=== PATIENT | female | born 1960 | race Caucasian/White ===

== ENCOUNTER 2020-04-04 11:58 | Outpatient (CLI) | payer OTHER, SELFPAY ==
--- NOTE | 2020-04-04 12:04 | MM_ITS ---
WS: [id number] BILATERAL DIGITAL SCREENING MAMMOGRAPHY WITH CAD CLINICAL INFORMATION: SCREENING HISTORY: Screening mammogram. No current complaints. COMPARISON: December 05, 2018 TECHNIQUE: Bilateral CC and MLO views. FINDINGS: Scattered fibroglandular densities bilaterally. No suspicious focal mass, asymmetry, calcifications, or architectural distortion. No evidence of malignancy. MM/[place] [id number] IMPRESSION: BI-RADS: 1-Negative FOLLOW UP: 1 Year Follow-up Recommend return to annual screening mammography.
== END 2020-04-04 11:59 | disposition home or self-care (01) ==
LOC: RADSHAW 12:03
PROVIDERS: PCP Internal Medicine; Visit Provider Internal Medicine
DX: Z12.31 Encounter for screening mammogram for malignant neoplasm of breast (principal)
CPT/HCPCS: 77067

== ENCOUNTER 2020-09-14 20:38 | Observation (INO) | payer OTHER, SELFPAY ==
[2020-09-14 20:41] VITALS: BP 174/86; RESP 16; TEMP 36.5; O2SAT 98; BMI 23.1
--- NOTE | 2020-09-14 21:41 | XRR_ITS ---
PROCEDURE INFORMATION: Exam: XR Left Wrist Exam date and time: 09/14/2020 9:45 PM Age: 60 years old Clinical indication: Injury or trauma; Blunt trauma (contusions or hematomas); Patient HX: Left wrist pain, fall TECHNIQUE: Imaging protocol: XR Left wrist. Views: 3 or more views. COMPARISON: No relevant prior studies available. FINDINGS: Bones/joints: Mildly displaced fracture of the tip of the ulnar styloid. Comminuted and mildly displaced intra-articular fracture of the distal left radius. A longitudinal component extends proximally to the distal diaphysis. Mild dorsal angulation of the distal fracture fragment and ventral displacement of multiple small bone fragments. Comminuted and mildly displaced fracture of the distal metaphysis of the left ulna. There is a radiopaque focus projecting over the 2nd middle phalanx seen only on the oblique image, this area was not included on the other 2 images. It is uncertain whether this could represent a foreign body or if it is a structure external to the patient. No dislocation. Bones are diffusely osteopenic. Soft tissues: Moderate soft tissue swelling at the distal left forearm and wrist. XR/XR wrist LT min 3V* [id number] IMPRESSION: 1. Comminuted and mildly displaced intra-articular fracture of the distal left radius. A longitudinal component extends proximally to the distal diaphysis. Mild dorsal angulation of the distal fracture fragment and ventral displacement of multiple small bone fragments. 2. Comminuted and mildly displaced fracture of the distal metaphysis of the left ulna. 3. Mildly displaced fracture of the tip of the ulnar styloid. 4. Moderate soft tissue swelling at the distal left forearm and wrist. 5. There is a radiopaque focus projecting over the 2nd middle phalanx seen only on the oblique image, this area was not included on the other 2 images. It is uncertain whether this could represent a foreign body or if it is a structure external to the patient. Recommend clinical correlation. Dedicated radiographs of the left hand may be obtained as clinically indicated.
--- NOTE | 2020-09-14 22:23 | W.ED.EXTPRO ---
HPI - Extremity Problem General: Chief complaint: Extremity Injury, Upper Stated complaint: Suspects broken left wrist Time Seen by Provider: 09/14/20 22:05 History of Present Illness: HPI Narrative: This patient is a 60-year-old female who presents today after falling at home. She slipped when some tea got knocked out of the refrigerator and spilled on the floor. She fell onto her outstretched left hand and now has a deformity of the left wrist. There is also an open area with bleeding. This happened at about 8:00 tonight. She has not eaten since lunchtime. Complaint: extremity pain and extremity swelling Onset (ago): hour(s) (2-10/22) Pain Consistency: constant Location: left and upper extremity Quality: aching and constant Radiation: none Relieving factors: nothing Exacerbating factors: range of motion and palpation Associated symptoms: Deny chest pain, fever(s) or rash Review of Systems General: Reports: 10 or more systems reviewed and unremarkable except in HPI and below Const: Denies: fever(s), chills, fatigue or malaise Eyes: Denies: change in vision ENMT: Denies: odynophagia Card: Denies: chest pain or swelling of feet/ankles Resp: Denies: dyspnea, productive cough or non-productive cough GI: Denies: abdominal pain, nausea or vomiting : Denies: flank pain or difficulty voiding Musc: Denies: neck pain or back pain Skin/Breast: Denies: rash Neuro: Denies: headache(s), numbness in extremities or weakness in extremities Link/Lymph: Denies: easy bruising or easy bleeding [facility] ED PFSH: Medical History (Updated 09/14/20 @ 22:24 by Vicki Canales MD) Hypothyroid Physical Exam Const: COMMON NORMALS: no acute distress, patient oriented x3, no limitations and alert GENERAL APPEARANCE: cooperative and comfortable HENMT: HEAD & SCALP: normal to inspection FACE & SINUS: normal facial exam Eye: GENERAL EYE: appearance normal, both eyes and all related structures Neck/C-Spine: COMMON NORMALS: supple, no meningeal signs and no JVD Chest: COMMONS NORMALS: normal inspection of the chest Resp: COMMON NORMALS: normal respiratory effort, No use of accessory muscles and clear to auscultation bilaterally AUSCULTATION: clear to auscultation bilaterally Cardio: COMMON NORMALS: no JVD, regular rate, regular rhythm and No murmurs present (Cardio) RATE: regular rate RHYTHM: regular rhythm GI: COMMON NORMALS: Normal to inspection, nondistended, normoactive bowel sounds present, Soft to palpation and non-tender INSPECTION: Yes normal to inspection AUSCULTATION: Yes normoactive bowel sounds PALPATION: Yes Soft to palpation Back/Pelvis: COMMON NORMALS: thoracic and lumbar spine normal to inspection Extremity: COMMON NORMALS: normal to inspection Neuro: COMMON NORMALS: patient oriented x3, moves all extremities, no focal motor deficits and no sensory deficits noted SENSORIUM/ORIENTATION: Yes alert MENINGEAL SIGNS: Yes no meningeal signs Psych: COMMON NORMALS: mental status grossly normal, cooperative and normal affect Skin: COMMON NORMALS: no rashes or lesions noted and turgor normal GENERAL SKIN EXAM: no rashes or lesions noted and turgor normal Course ED course: What is likely an open fracture of the left radius and ulna. This is comminuted and there is significant amount of swelling on clinical exam. She will be admitted to Dr. Gagnon. Dr. Gagnon asked me to start antibiotics and will keep her n.p.o. after midnight. Vital Signs: Vital signs: Vital Signs Temperature 98.8 F 09/15/20 02:13 Pulse Rate 98 09/15/20 02:13 Respiratory Rate 14 09/15/20 03:30 Blood Pressure 180/86 09/15/20 02:13 Pulse Oximetry 94 09/15/20 02:13 MDM - Extremity (Nontraumatic) Lab Data: Labs: Lab Results 09/14/20 09/14/20 Range/Units 22:41 22:41 WBC 7.8 (4.0-10.0) 10^3/ uL RBC 4.15 (4.1-5.3) 10^6/u L Hgb 12.1 (11.5-15.3) g/dL Hct 37.9 (37.0-47.0) % MCV 91.3 (81-99) fL MCH 29.2 (28.0-34.0) pg MCHC 31.9 (30.0-36.0) g/dL RDW 15.2 H (12.1-15.1) % Plt Count 222 (130-400) 10^3/c mm MPV 10.5 H (7.4-10.4) fL Neut % (Auto) 76.0 % Lymph % (Auto) 15.3 % [place] % (Auto) 6.4 % Eos % (Auto) 1.5 % Baso % (Auto) 0.4 % Neut # (Auto) 5.95 (1.8-7.7) 10^3/u L Lymph # (Auto) 1.2 (0.8-4.8) 10^3/u L [place] # (Auto) 0.5 (0.2-0.9) 10^3/u L Eos # (Auto) 0.1 (0.0-0.8) 10^3/u L Baso # (Auto) 0.0 (0.0-0.1) 10^3/u L Nucleated RBC % (a uto) 0 % Nucleated RBCs # 0.0 /100WBC Sodium 139 (136-145) mmol/L Potassium 3.8 (3.5-5.1) mmol/L Chloride 102 (98-107) mmol/L Carbon Dioxide 26 (22-29) mmol/L Anion Gap 14.8 (5-19) BUN 15 (6-20) mg/dL Creatinine 0.7 (0.5-0.9) mg/dL GFR Calculation 85.6 L (90-130) mL/min Glucose 104 (65-115) mg/dL Calculated Osmolal ity 289 (285-295) mOsm/k g Calcium 9.0 (8.5-10.5) mg/dL Total Bilirubin 0.3 (0.15-1.2) mg/dL AST 23 (0-32) U/L ALT 14 (0-33) U/L Alkaline Phosphata se 129 H (35-105) IU/L Total Protein 6.6 (6.6-8.7) g/dL Albumin 4.2 (3.5-5.2) g/dL Globulin 2.4 (1.3-4.6) g/dL Discharge Plan Discharge Patient Disposition: Admitted As Inpatient Admit Provider: Viri Lynch Coding Level of Care Code ED Skewer Up for [facility] Fwd Exam Comprehensive
[2020-09-14] MEDS: morphine 4 mg/mL SDV 1 mL IVP (22:37)
[2020-09-14] MEDS: ondansetron 2 mg/ML SDV 2 mL 4 MG IVP (22:37)
--- NOTE | 2020-09-14 22:46 | CTR_ITS ---
PROCEDURE INFORMATION: Exam: CT Left Upper Extremity Without Contrast, Wrist Exam date and time: 09/14/2020 11:02 PM Age: 60 years old Clinical indication: Injury or trauma; Fall; Blunt trauma (contusions or hematomas); Wrist; Left; Additional info: Fracture TECHNIQUE: Imaging protocol: CT of the Left upper extremity without contrast was performed. Exam focused on the wrist. Radiation optimization: All CT scans at this facility use at least one of these dose optimization techniques: automated exposure control; mA and/or kV adjustment per patient size (includes targeted exams where dose is matched to clinical indication); or iterative reconstruction. COMPARISON: CR XR wrist LT min 3V* [id number] 09/14/2020 10:02 PM RADIATION DOSE METRICS: Total DLP (mGy-cm): 99.91 FINDINGS: Bones/joints: Distal radius Colles comminuted mildly displaced fracture with articular involvement at the radiocarpal joint. Distal ulnar comminuted fracture with approximately 1/4 shaft displacement of distal fracture component in the ulnar direction. Ulnar styloid process tip small avulsion fracture. Soft tissues: Normal. CT/CT wrist LT wo con* [id number] IMPRESSION: 1. Distal radius Colles comminuted mildly displaced fracture with articular involvement at the radiocarpal joint. 2. Distal ulnar comminuted fracture with approximately 1/4 shaft displacement of distal fracture component in the ulnar direction. 3. Ulnar styloid process tip small avulsion fracture. Radiation Dose CTDIVOL = (mGy): DLP = 99.91 (mGy-cm)
[2020-09-14 22:53] LABS: Basophils % 0.4 %; Eosinophils # 0.1 10^3/uL (0.0-0.8); Eosinophils % 1.5 %; Hematocrit 37.9 % (37.0-47.0); Hemoglobin 12.1 g/dL (11.5-15.3); Lymphocytes # 1.2 10^3/uL (0.8-4.8); Lymphocytes % 15.3 %; Mean Corpuscular HGB Conc 31.9 g/dL (30.0-36.0); Mean Corpuscular Hemoglobin 29.2 pg (28.0-34.0); Mean Corpuscular Volume 91.3 fL (81-99); Mean Platelet Volume 10.5 fL (7.4-10.4); Monocytes # 0.5 10^3/uL (0.2-0.9); Monocytes % 6.4 %; Neutrophils # 5.95 10^3/uL (1.8-7.7); Nucleated Red Blood Cells % 0 %; Platelet Count 222 10^3/cmm (130-400); Red Blood Count 4.15 10^6/uL (4.1-5.3); Red Cell Distribution Width 15.2 % (12.1-15.1); White Blood Count 7.8 10^3/uL (4.0-10.0)
[2020-09-14] MEDS: ceFAZolin 1,000 MG in sodium chloride 0.9% (plus) 50 ML 100 MG IV (22:59)
[2020-09-14 23:17] LABS: Alanine Aminotransferase 14 U/L (0-33); Albumin Level 4.2 g/dL (3.5-5.2); Alkaline Phosphatase 129 IU/L (35-105); Anion Gap 14.8 (5-19); Aspartate Amino Transferase 23 U/L (0-32); Blood Urea Nitrogen 15 mg/dL (6-20); Carbon Dioxide 26 mmol/L (22-29); Chloride 102 mmol/L (98-107); Globulin 2.4 g/dL (1.3-4.6); Glomerular Filtration Rate 85.6 mL/min (90-130); Glucose 104 mg/dL (65-115); Osmolality Calculated 289 mOsm/kg (285-295); Potassium 3.8 mmol/L (3.5-5.1); Sodium 139 mmol/L (136-145); Total Bilirubin 0.3 mg/dL (0.15-1.2); Total Protein 6.6 g/dL (6.6-8.7)
[2020-09-14] MEDS: D5-NS 0.45% + KCL 20 mEq 20 MEQ/1,000 ML BAG 100 MEQ IV (23:51)
[2020-09-15] VITALS (15 sets, daily range): BP systolic 141–196; BP diastolic 73–106; PULSE 77–101; RESP 14–20; TEMP 36.4–37.1; O2SAT 94–100
--- NOTE | 2020-09-15 | SCC_ITS ---
Procedure Done: Open reduction internal fixation Left open comminuted impacted distal radius and ulna fractures with irrigation and degridement of open wound 81.3 seconds of fluoroscopic guidance, for a cumulative dose of 1.74 mGy, was provided to Dr. Lynch by the radiology department. C-arm images of the LEFT wrist were saved for the patient's permanent record. [facility]
[2020-09-15] MEDS: morphine 4 mg/mL SDV 1 mL IVP ×4 (00:09→06:43)
--- NOTE | 2020-09-15 07:45 | ANES.PREANE2 ---
Pre-Anesthetic Assessment Pre-Anesthetic Assessment: Height/Weight: Height 1.63 m Weight 61.235 kg Temp Pulse Resp BP Pulse Ox 98.8 F 98 14 180/86 94 09/15/20 02:13 09/15/20 02:13 09/15/20 06:43 09/15/20 02:13 09/15/20 02:13 Preop Diagnosis: Left distal radius fracture Proposed Procedure: Operation Date: 09/15/20 08:20 Proposed Procedures p ORIF Wrist(Left) - Viri Lynch MD Familial anesthetic complications: none Was Beta Jarvis taken within 24 hours: N/A Last intake: Intake Last Liquid Date 09/14/20 Last Liquid Time 16:00 Last Solid Date 09/14/20 Last Solid Time 16:00 Social: Social History: Tobacco Exam: Pre-Anes Outpt Exam: alert, oriented x 3, clear to auscultation bilaterally and regular rate & rhythm Airway: Cervical ROM: WNL MP: 2 Dentition: False Metabolic: Metabolic: Thyroid Anesthetic Plan: ASA status: 2 Anesthesia: General and Regional (specify below) Risk of > 500 ml blood loss (7ml/kg in children): No Meds/Allergies Current Medications: Current Medications Generic Name Dose Route Start Last Admin Trade Name Freq PRN Reason Stop Dose Admin Potassium Chloride /Dextrose/Sod Cl 20 meq in 1,000 m ls @ 100 mls/hr 09/14/20 22:30 09/14/20 23:51 D5-Ns 0.45% + Ezequiel l 20 Meq IV 100 mls/hr .Q10H DAR Administration Vancomycin HCl 1,0 00 mg/ 250 mls @ 250 mls /hr 09/15/20 07:43 09/15/20 07:58 Sodium Chloride IV 09/15/20 08:42 250 mls/hr ONCE ONE Administration Protocol Morphine Sulfate 4 mg 09/14/20 22:19 09/15/20 06:43 Morphine 4 Mg/Ml Sdv 1 Ml IVP 4 mg Q4H PRN Administration SEVERE PAIN PFSH Anesthesia PFSH: Medical History (Updated 09/15/20 @ 08:05 by Viri Lynch MD) Hypothyroid Family History (Updated 09/15/20 @ 08:03 by Viri Lynch MD) Grandmother Diabetes Other Cancer Social History (Updated 11/26/20 @ 08:02 by Viri Lynch MD) Smoking and tobacco status: current every day smoker cigarettes Packs smoked per day: 0.5 Data Anesthesia CBC & Chem 7: 09/14/20 22:41 09/14/20 22:41 Other Labs: Laboratory Results - last 48 hr 09/14/20 09/14/20 22:41 22:41 WBC 7.8 RBC 4.15 Hgb 12.1 Hct 37.9 MCV 91.3 MCH 29.2 MCHC 31.9 RDW 15.2 H Plt Count 222 MPV 10.5 H Neut % (Auto) 76.0 Lymph % (Auto) 15.3 [place] % (Auto) 6.4 Eos % (Auto) 1.5 Baso % (Auto) 0.4 Neut # (Auto) 5.95 Lymph # (Auto) 1.2 [place] # (Auto) 0.5 Eos # (Auto) 0.1 Baso # (Auto) 0.0 Nucleated RBC % (auto) 0 Nucleated RBCs # 0.0 Sodium 139 Potassium 3.8 Chloride 102 Carbon Dioxide 26 Anion Gap 14.8 BUN 15 Creatinine 0.7 GFR Calculation 85.6 L Glucose 104 Calculated Osmolality 289 Calcium 9.0 Total Bilirubin 0.3 AST 23 ALT 14 Alkaline Phosphatase 129 H Total Protein 6.6 Albumin 4.2 Globulin 2.4 Cardiac Studies: No Data to Display
[2020-09-15] MEDS: sodium chloride 0.9% 1,000 ML 30 ML IV (07:55)
--- NOTE | 2020-09-15 07:57 | P.HP_ITS ---
Providers/Chief Complaint Admitting Physician: Viri Lynch MD Primary Care Provider: Jarvis Dozier DO Chief Complaint: Suspects broken left wrist History of Present Illness Sherine Ruiz is a 60 year old female slipped in her kitchen on tea. She fell to the floor onto her outstretched left upper extremity. She presented to the emergency department after this fall feeling that she may have broken her wrist. There was a small laceration on the volar surface of the wrist and the patient was found to have a comminuted intra-articular distal radius fracture with multiple fracture fragments. Patient was brought into the hospital overnight for planned surgery in the morning. Review of Systems Const: Denies: fever(s) or chills Eyes: Denies: change in vision Card: Denies: chest pain or dyspnea on exertion Resp: Denies: dyspnea or productive cough GI: Denies: abdominal pain Skin/Breast: Denies: erythema or changes in skin color Neuro: Denies: numbness in extremities Psych: Denies: anxiety or depression Link/Lymph: Denies: easy bruising or easy bleeding Medications/Allergies Home Medications Medication Instructions Recorded Confirmed Last Taken Type estradiol 1 gm VAGINAL .twice a week #42.5 gm 07/29/20 09/14/20 Unknown Rx levothyroxine [Synthroid] 150 mcg PO DAILY 09/14/20 09/14/20 09/14/20 History tramadol 50 mg PO Q4H PRN 09/14/20 09/14/20 09/14/20 History Allergies Allergy/AdvReac Type Severity Reaction Status Date / Time No Known Allergies Allergy Verified 07/29/20 12:33 PFSH Acute PFSH: Medical History (Updated 09/15/20 @ 08:05 by Viri Lynch MD) Hypothyroid Family History (Updated 09/15/20 @ 08:03 by Viri Lynch MD) Grandmother Diabetes Other Cancer Social History (Updated 09/15/20 @ 08:02 by Viri Lynch MD) Smoking and tobacco status: current every day smoker cigarettes Packs smoked per day: 0.5 Vitals/I&O/Wt Last Vital Signs Temp 98.8 F 09/15/20 02:13 Pulse 98 09/15/20 02:13 Resp 14 09/15/20 06:43 BP 180/86 09/15/20 02:13 Pulse Ox 94 09/15/20 02:13 09/14/20 09/15/20 09/15/20 22:59 06:59 14:59 Intake Total 50 / 50 Output Total 500 / 500 Balance -450 / -450 Weight last 48 hrs Weight 135 lb Physical Exam Const: COMMON NORMALS: no acute distress, average body habitus, patient oriented x3 and alert GENERAL APPEARANCE: cooperative and comfortable ORIENTATION/CONSCIOUSNESS: Yes awake HENMT: COMMON NORMALS: normocephalic and atraumatic HEAD & SCALP: normocephalic and atraumatic Eye: GENERAL EYE: appearance normal, both eyes and all related structures Chest: COMMONS NORMALS: normal inspection of the chest Resp: COMMON NORMALS: normal respiratory effort EFFORT & INSPECTION: Yes a ble to speak in complete sentences and Yes symmetric chest movement Extremity: LEFT UPPER EXTREMITY: Yes clavicle (Previous well-healed surgical scar secondary to fracture) and Yes wrist Left wrist: Yes inspection (The wrist is in a volar splint), Yes palpation (Light sensation to palpation is intact), Yes ROM (Not evaluated) and Yes neurovascular exam (Intact) Neuro: COMMON NORMALS: patient oriented x3 SENSORIUM/ORIENTATION: Yes alert Psych: COMMON NORMALS: mental status grossly normal APPEARANCE: Yes grossly normal ATTITUDE: Yes calm and Yes engaged ATTENTION/CONCENTRATION: Yes attention grossly intact Skin: COMMON NORMALS: no rashes or lesions noted GENERAL SKIN EXAM: no rashes or lesions noted Data : 09/14/20 22:41 09/14/20 22:41 A&P Assessment and plan (1) Open fracture of left distal radius and ulna: This 60-year-old woman was admitted through the emergency department with a comminuted intra-articular distal radius fracture as well as distal ulna fracture. There was a small laceration on the volar surface of the wrist. The wound was felt to be open. The patient was given antibiotics and brought in overnight for planned surgery in the morning. The patient is scheduled for open reduction internal fixation. Risks and complications are discussed with her. Consents were signed preoperatively. Questions were answered. Status: Acute Qualifiers: Encounter type: initial encounter Open fracture type: open type I or II Qualified Code(s): S52.502B - Unspecified fracture of the lower end of left radius, initial encounter for open fracture type I or II; S52.602B - Unspecified fracture of lower end of left ulna, initial encounter for open fracture type I or II Attestations Medical Necessity Statement*: Patient is outpatient in a bed Coding Level of Care Code Acute [employer] Consultant for [facility] Fwd Exam Comprehensive Diagnoses Open fracture of left distal radius and ulna S52.502B; S52.602B Encounter type: initial encounter Open fracture type: open type I or II
[2020-09-15] MEDS: vancomycin 1,000 MG in sodium chloride 0.9% 250 ML 250 MG IV (07:58)
--- NOTE | 2020-09-15 08:06 | ANES.PROC ---
Anesthesia Procedures Procedure/Date: 09/15/20 Nerve Block ^: Nerve Block 1: Main Anesthesia: general anesthesia Time Out Performed: Yes Consent: requested by attending/covering physician, from patient, risks and benefits reviewed and patient agrees to proceed Nerve block location: axillary (L) Anesthesia monitors applied: pulse oximetry, EKG, BP cuff and oxygen Nerve block position: supine Anesthetic Used: ropivicaine 0.5% and with decadron (4 mg) Amount of anesthesia used (mL): 30 Ultrasound used to: recognize landmarks and visualize and ID brachial plexus Nerve Stimulator Used?: No Interscalene/Femoral BLK: 2 stimuplex 22 g needle used for position and inplane approach, other needle, visualize local anesthetic spread and no vascular puncture identified Injection: neg aspiration of heme and paresthesia +/- (-) Patient Tolerated Procedure: well and no complications
--- NOTE | 2020-09-15 08:19 | PM.OP ---
Operative Report Date of procedure: September 15, 2020 Pre-op Diagnosis: Left open comminuted impacted distal radius and ulna fractures Post-op diagnosis: same Procedure Done: Open reduction internal fixation Left open comminuted impacted distal radius and ulna fractures with irrigation and degridement of open wound Implants: Hamzah long left narrow distal radius plate Pathology: none sent Surgeon: Viri Lynch Pathology Lab Technician: [facility] OR technicians Anesthesia: MAC and Nerve Block (Axillary) Estimated blood loss (mL): 10 Tourniquet time (min): 70 Tourniquet time: At 250 mmHg IV fluids (mL): 700 Urine output (mL): 0 Urine output: No [place] Complications: None Findings: Severe comminution of Left distal radius fracture with impaction and bone defect. Open fracture of the distal radius and ulna Condition: stable Disposition: PACU (Then return to floor and home) Brief History: This 60-year-old woman presented to the emergency department with an open impacted comminuted left distal radius fracture. Discussion was undertaken with the patient regarding appropriate treatment in the form of open reduction internal fixation. After the discussion, we both agreed the patient would benefit from open reduction internal fixation. Therefore, following the discussion, questions were answered and surgery was scheduled for the patient. Procedure: Patient was brought to the operating theater, and after undergoing adequate MAC anesthesia preceded by an axillary block in the preop holding area, the patient's left upper extremity was prepped and draped in usual fashion utilizing DuraPrep. The patient had a tourniquet placed high on the arm prior to prepping and draping. Following prepping and draping, the arm was exsanguinated and the tourniquet was elevated. Total tourniquet time was 70 minutes at 250 mmHg. Prior to commencement of the surgical procedure, a surgical pause was performed. At the time of the surgical pause, we confirmed the site and side of surgery as well as the patient's identity and preoperative surgical markings. We also confirmed availability of equipment and appropriate preoperative IV antibiotics which was vancomycin 1 g. Fluoroscopy was also brought into position so that we could visualize the fracture and hardware throughout the surgical procedure. The fracture was evaluated prior to tourniquet placement. Following elevation of the tourniquet as well as the surgical pause, an incision was made along the palmaris longus and continued down onto the volar surface of the radius. The area of the skin which was a small puncture wound, likely inside out, was excised during the incision process. The incision was modified to incorporate this area. Care was taken to avoid injury throughout the surgical procedure to the median nerve as well as to the radial artery. The flexor carpi radialis was retracted medially. We were able to essentially elevate the sheath of the flexor carpi radialis and then I was able to place my finger directly onto the distal radius. For the most part, the patient did her own dissection at the time of her injury. Soft tissues were elevated off the distal radius to allow access to the fracture and also to the volar aspect of the distal radial shaft. Upon evaluation, the extension along the volar surface of the radius proximal to the fracture with a nondisplaced fracture line was apparent. This had not been visualized on the CT scan, but was suspected from the plain radiographs. Fluoroscopy was used to determine whether or not the reduction was appropriate. We were able to reduce the fracture nearly anatomically, but there was significant comminution. Also, there was cortical bone impacted into the shaft of the radius. This was brought out and used on the cortical aspect of the bone as well. We then evaluated the plate and chose the long narrow left volar distal radius plate. The plate was attached proximally and distally without difficulty. A combination of locking and one nonlocking screw was utilized to attach the plate. We had excellent fixation and reduction of the fracture. Fluoroscopy was utilized during the procedure. Once the plate was fully attached, we had a near anatomic position to the distal radius and the distal radius was out to length. Being satisfied with position, the area was copiously irrigated. 3 L of fluid with bacitracin was used to irrigate secondary to the open fracture. There were no fascial tissues to close, and therefore we closed the subcutaneous tissues with 3-0 interrupted Monocryl. Secondary to the open fracture, kirk were used to close the skin. This was followed by Xeroform gauze, fluffed fluffs, and soft roll. A volar splint was placed into position over soft roll and this was wrapped in place with an Jose Alfredo wrap. The tourniquet was released after 70 minutes. There were no complications. There were no specimens. Patient was returned to recovery room in a satisfactory condition. She was subsequently discharged home. She will follow-up with me as scheduled in her discharge instructions. Associated Problem List Diagnoses (1) Open fracture of left distal radius and ulna: Qualifiers: Encounter type: initial encounter Open fracture type: open type I or II Qualified Code(s): S52.502B - Unspecified fracture of the lower end of left radius, initial encounter for open fracture type I or II; S52.602B - Unspecified fracture of lower end of left ulna, initial encounter for open fracture type I or II
[2020-09-15] MEDS: ceFAZolin 1,000 mg SDV 1000 MG IRRIGATION (09:16)
--- NOTE | 2020-09-15 09:48 | XR_ITS ---
WS: [id number] C-ARM RADIOGRAPHS LEFT WRIST; 4 IMAGES HISTORY: OR PICS COMPARISON: 09/14/2020 Plate and screw fixation of the distal comminuted metaphyseal fracture. Improved alignment of the fra cture. Oblique fracture through the distal ulna. XR/XR wrist LT 2V [id number] IMPRESSION: Status post ORIF of radial metaphyseal fracture now in good alignment.
--- NOTE | 2020-09-15 10:07 | SUR.PHASEI ---
PT TO RECOVERY SLEEPS , DOES NOT AWAKE TO TOUCH, ORAL AIRWAY NOW OUT, GOOD RESP EFFORT NOTED SATS 99% ON 8L MASK LT ARM DRESSING D/I WITH SLING IN PLACE DISTAL FINGERS PINK WARM TO TOUCH, CAP REFILL LESS THAN 3 SECONDS.
[2020-09-15] MEDS: CELEcoxib 200 mg Capsule 400 MG PO (10:17)
--- NOTE | 2020-09-15 10:24 | PC.NURSE ---
Received telephone order from Dr. Lynch for patient to be dispensed 5 Francis 5/325mg. Patient can take one PO every 4 hours as needed for post surgical pain. Spoke with Lorraine in inpatient pharmacy who is going to fill this for the patient. Order also placed for home health for a dressing change to be completed next week.
--- NOTE | 2020-09-15 10:25 | ANE.PACU2 ---
Inpatient post-anesthesia follow up: Vital signs: Temperature 97.7 F Pulse Rate 81 Respiratory Rate 16 Blood Pressure [Ri ght Arm] 174/86 Blood Pressure 166/88 Pulse Oximetry 95 Oxygen Delivery Me thod Room Air Oxygen Flow Rate 8 Fraction of Inspir ed Oxygen Hydration adequate: Yes Nausea and vomiting: No Pain level: 2 Mental status: Baseline
--- NOTE | 2020-09-15 10:54 | SUR.PHASEI ---
1040 PT UP TO BR , TOLERATED WELL LARGE AMT URINE , PT BACK TO CART AND UP TO ROOM , PT WALKED TO BED WITHOUT DIFFICULTY PT WAS MAC SEDATION ONLY BUT HAD BED VERY SEDATED IN PACU. PT ALERT TALKATIVE HANDOFF AT BEDSIDE TO ADDIE DILL.
--- NOTE | 2020-09-15 11:20 | PC.NURSE ---
received 5 hydrocodone -acetaminophen pills from pharmacy to give to pt. Pills gave to pt.
--- NOTE | 2020-09-15 11:24 | PC.NURSE ---
iv taken out and intact. discharge instructions explained and all questions answered. pt taken to surgical services entrance via wheelchair.
== END 2020-09-15 11:29 | disposition home or self-care (01) ==
LOC: ER 23:14 → MEDSURG 09-15 01:44
PROVIDERS: Admitting Provider Specialist; Emergency Provider Emergency Medicine; PCP Internal Medicine; Visit Provider Specialist
PROC: (CPT 25609; principal; 2020-09-15 08:00)
DX: S52.502B Unspecified fracture of the lower end of left radius, initial encounter for open fracture type I or II (principal); S52.602B Unspecified fracture of lower end of left ulna, initial encounter for open fracture type I or II; X58.XXXA Exposure to other specified factors, initial encounter; E03.9 Hypothyroidism, unspecified; F17.210 Nicotine dependence, cigarettes, uncomplicated
CPT/HCPCS: 25609; 12345; 29125; 64417; 73100; 73110; 73200; 76000; 76942; 80053; 85025; 96365; 96366; 96367; 96375; 99283; C1713; G0378; J0131; J0690; J2250; J2270; J2405; J2704; J2795; J3010; J3370; J3490; J7030; J7050

== ENCOUNTER → 2020-09-28 13:36 | Outpatient (BNVA) | payer OTHER, SELFPAY | PROVIDERS: PCP Internal Medicine; Visit Provider Specialist | DX: S52.502B Unspecified fracture of the lower end of left radius, initial encounter for open fracture type I or II (principal); S52.602B Unspecified fracture of lower end of left ulna, initial encounter for open fracture type I or II; Z98.890 Other specified postprocedural states; X58.XXXA Exposure to other specified factors, initial encounter | CPT/HCPCS: 73110 ==

== ENCOUNTER 2020-09-28 16:01 | Outpatient (CLI) | payer OTHER, SELFPAY | END 2020-09-28 16:02 | disposition home or self-care (01) | LOC: SPT 16:02 | PROVIDERS: PCP Internal Medicine; Visit Provider Specialist | DX: Z47.89 Encounter for other orthopedic aftercare (principal) | CPT/HCPCS: 97760; L3908 ==

== ENCOUNTER → 2020-10-26 09:52 | Outpatient (BNVA) | payer OTHER, SELFPAY | PROVIDERS: PCP Internal Medicine; Visit Provider Specialist | DX: S52.502B Unspecified fracture of the lower end of left radius, initial encounter for open fracture type I or II (principal); S52.602B Unspecified fracture of lower end of left ulna, initial encounter for open fracture type I or II; Z98.890 Other specified postprocedural states; Z87.81 Personal history of (healed) traumatic fracture; X58.XXXA Exposure to other specified factors, initial encounter | CPT/HCPCS: 73110 ==

== ENCOUNTER 2020-10-27 07:05 | Outpatient (RCR) | payer OTHER, SELFPAY | END 2020-11-20 23:59 | disposition home or self-care (01) | LOC: SOT 07:05 | PROVIDERS: PCP Internal Medicine; Referring Provider Specialist; Visit Provider Specialist | DX: Z98.890 Other specified postprocedural states (principal) | CPT/HCPCS: 97110; 97112; 97140; 97166 ==

== ENCOUNTER → 2020-11-16 09:47 | Outpatient (BNVA) | payer OTHER, SELFPAY | PROVIDERS: PCP Internal Medicine; Visit Provider Specialist | DX: S52.502B Unspecified fracture of the lower end of left radius, initial encounter for open fracture type I or II (principal); S52.602B Unspecified fracture of lower end of left ulna, initial encounter for open fracture type I or II; Z98.890 Other specified postprocedural states; Z87.81 Personal history of (healed) traumatic fracture; X58.XXXA Exposure to other specified factors, initial encounter | CPT/HCPCS: 73110 ==

== ENCOUNTER 2020-11-21 06:00 | Outpatient (RCR) | payer OTHER, SELFPAY | END 2020-12-18 23:59 | disposition home or self-care (01) | LOC: SOT 06:00 | PROVIDERS: PCP Internal Medicine; Referring Provider Specialist; Visit Provider Specialist | DX: Z47.89 Encounter for other orthopedic aftercare (principal) | CPT/HCPCS: 97018; 97110; 97112; 97140; 97530 ==

== ENCOUNTER → 2020-12-01 10:13 | Outpatient (BNVA) | payer OTHER, SELFPAY | PROVIDERS: PCP Internal Medicine; Visit Provider Specialist | DX: Z47.89 Encounter for other orthopedic aftercare (principal); S52.502E Unspecified fracture of the lower end of left radius, subsequent encounter for open fracture type I or II with routine healing; S52.602E Unspecified fracture of lower end of left ulna, subsequent encounter for open fracture type I or II with routine healing; Z87.81 Personal history of (healed) traumatic fracture; X58.XXXD Exposure to other specified factors, subsequent encounter | CPT/HCPCS: 73110 ==

== ENCOUNTER → 2021-01-04 13:58 | Outpatient (BNVA) | payer OTHER, SELFPAY | PROVIDERS: PCP Internal Medicine; Visit Provider Specialist | DX: Z98.890 Other specified postprocedural states (principal); S52.502B Unspecified fracture of the lower end of left radius, initial encounter for open fracture type I or II; S52.602B Unspecified fracture of lower end of left ulna, initial encounter for open fracture type I or II; Z87.81 Personal history of (healed) traumatic fracture; X58.XXXD Exposure to other specified factors, subsequent encounter | CPT/HCPCS: 73110 ==

== ENCOUNTER → 2021-01-09 09:05 | Outpatient (BNVA) | payer OTHER, SELFPAY | PROVIDERS: PCP Internal Medicine; Visit Provider Specialist | DX: R20.0 Anesthesia of skin (principal); R20.2 Paresthesia of skin; G56.02 Carpal tunnel syndrome, left upper limb; Z98.890 Other specified postprocedural states; Z87.81 Personal history of (healed) traumatic fracture; F17.210 Nicotine dependence, cigarettes, uncomplicated | CPT/HCPCS: 95886; 95910 ==

== ENCOUNTER → 2021-03-03 15:47 | Outpatient (BNVA) | payer OTHER, SELFPAY | PROVIDERS: PCP Internal Medicine; Visit Provider Specialist | DX: Z01.812 Encounter for preprocedural laboratory examination (principal); Z20.822 Contact with and (suspected) exposure to COVID-19 | CPT/HCPCS: 87635 ==

== ENCOUNTER 2021-03-07 05:59 | Day surgery (SDC) | payer OTHER, SELFPAY ==
[2021-03-06 14:13] VITALS: BMI 23.1
[2021-03-07 06:11] VITALS: BP 155/94; PULSE 95; RESP 16; TEMP 36.6; O2SAT 97
[2021-03-07] MEDS: acetaminophen 1,000 MG/100 ML PIGGYBACK 400 MG IV (06:30)
[2021-03-07] MEDS: sodium chloride 0.9% 1,000 ML 30 ML IV (06:30)
--- NOTE | 2021-03-07 06:51 | W.PM.OPSUD ---
Surgery/Procedure H&P Update DATE OF PROCEDURE: March 07, 2021 DATE H&P PERFORMED: 02/22/21 H&P UPDATE INFORMATION: I have reviewed H&P completed within last 30 days, I have examined patient prior to procedure, No changes to prior documentation and [place] [facility] [place] PREOP DIAGNOSIS: Left carpal tunnel syndrome PLANNED PROCEDURE: Operation Date: 03/07/21 07:00 Proposed Procedures p Carpal Tunnel Release [id number] G56.00(Left) - Viri Lynch MD Related Problem List Diagnoses (1) Carpal tunnel syndrome, left:
--- NOTE | 2021-03-07 07:19 | ANES.PREANE2 ---
Pre-Anesthetic Assessment Pre-Anesthetic Assessment: Height/Weight: Height 1.63 m Weight 61.235 kg Temp Pulse Resp BP Pulse Ox 98 F 95 16 155/94 97 03/07/21 06:11 03/07/21 06:11 03/07/21 06:11 03/07/21 06:11 03/07/21 06:11 Preop Diagnosis: Left carpal tunnel syndrome Proposed Procedure: Operation Date: 03/07/21 07:00 Proposed Procedures p Carpal Tunnel Release [id number] G56.00(Left) - Viri Lynch MD Was Beta Jarvis taken within 24 hours: N/A Was Clonidine taken within 24 hours: N/A Last intake: Intake Last Liquid Date 03/06/21 Last Liquid Time 18:00 Last Solid Date 03/06/21 Last Solid Time 18:00 Social: Social History: Tobacco and No alcohol Exam: Pre-Anes Outpt Exam: alert, oriented x 3, clear to auscultation bilaterally and regular rate & rhythm Airway: Submandibular: WNL Cervical ROM: WNL MP: 2 Dentition: Partials Pulmonary: Pulmonary: None reported CV/HEM: CV/HEM: None reported : : None reported Hepatic: Hepatic: None reported GI: GI: None reported Metabolic: Metabolic: Thyroid Musc/skel: Musc/skel: None reported Neuropsych: Neuropsych: None reported Anesthetic Plan: ASA status: 2 Anesthesia: Regional (specify below) Other: Favio Block Meds/Allergies Current Medications: Current Medications Generic Name Dose Route Start Last Admin Trade Name Freq PRN Reason Stop Dose Admin Sodium Chloride 1,000 mls @ 30 ml s/hr 03/07/21 06:15 03/07/21 06:30 Sodium Chloride 0.9% IV 03/08/21 06:14 30 mls/hr .Q24H DAR Administration PFSH Anesthesia PFSH: Medical History Hypothyroid Family History Grandmother Diabetes Other Cancer Social History Smoking and tobacco status: current every day smoker cigarettes Packs smoked per day: 0.5 Data Anesthesia Cardiac Studies: No Data to Display
[2021-03-07 07:45] VITALS: BP 150/95; PULSE 92; RESP 12; TEMP 36.9; O2SAT 96
--- NOTE | 2021-03-07 07:48 | SUR.PHASEI ---
0745 PATIENT TO PACU FROM OR. NO DISTRESS. RR EVEN AND UNLABORED. DRESSING TO LEFT WRIST, CDI.
[2021-03-07 07:50] VITALS: BP 139/93; PULSE 77; RESP 14; TEMP 36.2; O2SAT 96
[2021-03-07 07:56] VITALS: BP 154/95; PULSE 84; RESP 16; TEMP 36.6; O2SAT 98
--- NOTE | 2021-03-07 08:03 | SUR.PHASEI ---
0754 PATIENT TO OPS AT THIS TIME. DENIES PAIN. DRESSING TO LEFT WRIST, CDI
--- NOTE | 2021-03-07 08:09 | PM.OP ---
Operative Report Date of procedure: March 07, 2021 Pre-op Diagnosis: Left carpal tunnel syndrome Post-op diagnosis: same Post-op Findings: Compression of median nerve across the carpal canal Procedure Done: Left carpal tunnel release Specimens removed/disposition: None Pathology: none sent Surgeon: Viri Lynch Anesthesia: MAC (With [place] block) Estimated blood loss (mL): 2 Tourniquet time (min): 35 Tourniquet time: At 250 mmHg IV fluids (mL): 700 Urine output (mL): 0 Urine output: No Quevedo Complications: None Findings: Mild hourglass deformity of the median nerve Condition: stable Disposition: PACU (Then returned to same-day surgery for D/C to home) Brief History: This 60-year-old woman presented with complaints of numbness and tingling in her hand following open reduction internal fixation of an open distal radius fracture. 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 Risks and complications were discussed with her. Consents were signed and questions were answered. Procedure: The patient was brought to the operating theater. The patient had a [place] block with MAC. The tourniquet was elevated to 250 mmHg for a total tourniquet time of 35 minutes. The patient was also given Ancef 2 g as well as IV Tylenol preoperatively. The arm was then prepped and draped with DuraPrep in usual fashion with the arm draped free. A surgical pause was performed. At the time, the surgical pause, we confirmed the site and side of surgery. We also confirmed the patient's identity, appropriate and timely administration of preoperative antibiotics and identified preoperative surgical markings. An incision was then made along the thenar crease. The incision crossed the wrist joint in a curvilinear fashion. Dissection continued through skin and soft tissues using a scalpel. The palmaris longus was identified along with the transverse carpal ligament. Each of these was released carefully to avoid injury to the median nerve. We were able to dissect gently into the carpal canal which was noted to be quite tight with significant compression across the median nerve. The nerve was visualized and was an hourglass shape. The canal was subsequently palpated to assure there was no bony encroachment upon the canal. There was scarring at the distal end of the patient's previous incision, and this was released. The canal was then palpated distally and proximally to assure that my small finger was passed easily without impingement. Finding this to be so, attention was directed to closure. The wound was irrigated with ropivacaine plain. It was then closed with 3-0 nylon in an interrupted mattress fashion. Sterile dressing was then placed consisting of Xeroform gauze, fluffed fluffs, sterile soft roll, a volar splint, and an Jose Alfredo wrap. The tourniquet was released after 35 minutes. There were no complications. There were no specimens. The procedure was well tolerated. Plan is the patient will be discharged home. Associated Problem List Diagnoses (1) Carpal tunnel syndrome, left:
[2021-03-07 08:11] VITALS: BP 146/90; PULSE 82; RESP 15; TEMP 36.3; O2SAT 97
--- NOTE | 2021-03-07 14:50 | ANE.PACU2 ---
Inpatient post-anesthesia follow up: Airway intact: Yes Vital signs: Temperature 97.3 F Pulse Rate 82 Respiratory Rate 15 Blood Pressure 146/90 Pulse Oximetry 97 Oxygen Delivery Me thod Room Air Oxygen Flow Rate Fraction of Inspir ed Oxygen Hydration adequate: Yes Nausea and vomiting: No Pain level: 2 Mental status: Baseline
== END 2021-03-07 08:30 | disposition home or self-care (01) ==
PROVIDERS: PCP Internal Medicine; Visit Provider Specialist
PROC: (CPT 64721; principal; 2021-03-07 07:00)
DX: G56.02 Carpal tunnel syndrome, left upper limb (principal); E03.9 Hypothyroidism, unspecified; F17.210 Nicotine dependence, cigarettes, uncomplicated
CPT/HCPCS: 64721; 96365; J0690; J2250; J2704; J3010; J3490; J7030

== ENCOUNTER 2021-08-09 09:06 | Outpatient (CLI) | payer OTHER, SELFPAY ==
--- NOTE | 2021-08-09 09:13 | MM_ITS ---
WS: [id number] SCREENING DIGITAL MAMMOGRAM WITH CAD HISTORY: SCREENING COMPARISON: 04/04/2020 and 12/05/2018 Bilateral CC and MLO views submitted. Computer aided detection analyzed. Breast composition: There are scattered areas of fibroglandular density. No suspicious masses, microc alcifications or architectural distortion. MM/[place] [id number] IMPRESSION: BI-RADS: 1-Negative FOLLOW UP: 1 Year Follow-up
== END 2021-08-09 09:07 | disposition home or self-care (01) ==
PROVIDERS: PCP Internal Medicine; Visit Provider Internal Medicine
DX: Z12.31 Encounter for screening mammogram for malignant neoplasm of breast (principal)
CPT/HCPCS: 77067